=== PATIENT | male | born 1985 | race Caucasian/White ===

== ENCOUNTER 2019-04-26 10:01 | Emergency (ER) | payer OTHER ==
[~2019-04-26] VITALS: Ht 177.8 cm; Wt 83.9 kg
[2019-04-26] MEDS ORDERED: XANAX 0.5 MG0.5 M1 PO (10:11)
[2019-04-26 11:09] LABS: INFLUENZA A ANTIGEN Negative (Negative); INFLUENZA B ANTIGEN Negative (Negative)
[2019-04-26] MEDS ORDERED: MEDROLDOSEPACK PO (11:36)
[2019-04-26] MEDS ORDERED: TESSALON PERLE100 MG PO (11:36)
[2019-04-26] MEDS ORDERED: ZPAK PO (11:36)
[2019-04-26 11:55] VITALS: BP 130/68
== END 2019-04-26 11:56 | disposition home or self-care (01) ==
LOC: M.ERS 10:01
PROVIDERS: Nurse Practitioner Family
DX: J20.9 Acute bronchitis, unspecified (principal); F41.9 Anxiety disorder, unspecified